=== PATIENT | female | born 1965 | race Caucasian/White ===

== ENCOUNTER → 2017-03-21 | Day surgery (SDC) | payer OTHER ==
[2017-03-21] VITALS (12 sets, daily range): BP systolic 126–153; BP diastolic 68–89; PULSE 68–99; RESP 10–16; O2SAT 97–100
[~2017-03-21] VITALS: Ht 167.6 cm; Wt 90.3 kg
[~2017-03-21] MED LIST: ASPI-973 PO; CeFAZolin Inj 2 GM in IV Premix 1 EACH IV ONE; Dexamethasone 4 mg/mL Inj IVPUSH PRN; Dexamethasone 4 mg/mL Inj ONE; EPHEDrine Sulfate 50 mg/mL Inj IVPUSH PRN; HYDR-4003 PO; HYDROcodone-APAP 5-325 mg Tablet PO PRN; IBUP-1827 PO; Ketorolac 15 mg/mL Inj IVPUSH ONE; Labetalol 5 mg/mL 20 mL Inj IV PRN; Lactated Ringer's 1,000 ML IV ONE; Lactated Ringer's 1,000 ML IV SCH; Lactated Ringer's 500 ML IV PRN; Ondansetron 2 mg/mL 2 mL Inj IVPUSH PRN; Ondansetron 2 mg/mL 2 mL Inj ONE; Phenylephrine 10,000 mCg/mL Inj IVPUSH PRN; Propofol 10,000 mCg/mL 20 mL Inj ONE; Ropivacaine-PF 0.5% 30 mL Inj INFILTRATE ONE; fentaNYL-PF 50 mCg/mL 2 mL Inj ONE
--- NOTE | 2017-03-21 08:25 | PCM.HPANE ---
Patient Data Date of Service: Mar 21, 2017 Surgeon Admitting Provider: Attending Provider:Rosales Ma MD Primary Care Physician:Ghazal Sharp DO Other Provider:Andrae Denney Anesthesia Reason for Visit Left Meniscal Tear Ht/WT & BMI Height (Feet): 5 Height (Inches): 6 Weight (Kilograms): 92. Body Mass Index 32.00 Allergies Coded Allergies: codeine (Verified Allergy, Severe, Itching, 03/19/17) Past Anesthesia History Anesthesia History: Denies:: Abnormal Airway, Anesthesia Reactions, Difficult Intubation, Fam Anesthesia Reaction, Fam Malignant Hypertherm, Malignant Hyperthermia Diabetes History Hx Diabetes?: No MRSA MRSA: No Medications Reported Medications Aspirin 81 Mg [id number] Mg PO DAILY Ref 0 03/19/17 Ibuprofen 600 Mg [id number] Mg PO TID PRN For Pain Ref 0 03/19/17 Discontinued Reported Medications Hydrocodone-Acetaminophen 5-325 mg 1 Each Tablet0.5 Tablet PO HS PRN For Pain Ref 0 03/19/17 History History of ENT Problems?: No HEENT History: Denies:: Abnormal Airway Cataracts Difficult Intubation Dysphagia Glaucoma Hearing Problem Sinus Problem TMJ Denture Type: None Teeth Condition: Within Normal Limits Hx of Heart Problems?: No Cardiovascular History: Denies:: AICD Abdominal Aortic Aneurism Atrial Fibrillation Cardiac Surgery Chest Pain Congestive Heart Failure Coronary Artery Disease Edema Heart Murmur Hypertension Irregular Heartbeat Pacemaker Peripheral Vascular Rheumatic Fever Thrombophlebitis Valvular Heart Disease Hx of Respiratory Problem?: Yes Respiratory History: Positive for:: Pneumonia (Last 2013 & 2014) Denies:: Tuberculosis Use of C-PAP Machine Use of Inhalers / NEBS Hx Neurologic Problems?: No Neurological History: Denies:: Alzheimer's Disease CVA Dementia Dizziness Headaches Multiple Sclerosis Parkinson's Disease Seizures TIA Hx of GI Problems?: No Hx of Problems?: No Genitourinary History: Denies:: Urinary Tract Infection Female Hx: Denies:: Currently Problems with Breasts? Skin History: Denies:: History Skin Disorders? Pressure Ulcers Hx Musculoskeletal Problems?: Yes Musculoskeletal History: Positive for:: Back Injury (low back pain disc desinagrating) Musculoskeletal Trauma (lt. Knee ) Denies:: Degenerative Joint Fibromyalgia Joint Replacement Myasthenia Gravis Osteoarthritis Rheumatoid Arthritis Hx of Psycho/Social Problems?: No Hx Surgeries?: Yes (vericose vein, Inguinal hernia) Other History: Positive for:: Hospitalization (vericose vein, Inguinal hernia , Fx arm) Denies:: Cancer Thyroid Disease History Blood Transfusions: Positive for:: Accept Blood Products? Denies:: Blood Transfusions Hx Diabetes: No Hx Alcohol Use: YesAlcoholic Drinks Per Day: weekends one to two beersHx Substance Use: Yes (Thermal lotion) Stop/Bang Treated for Sleep Apnea?: No Do You Have a CPAP Machine?: No S-Snoring: Do You Snore Loudly: No T-Tired: feel tired, fatigued: Yes O-Obsered: Observed not breath: No P-Blood Pressure: treated: No B- Body Mass Index > 35 kg/m2: No A- Age over 50: Yes N- Neck Large Circumference: No G- Gender Male: No NISHA Total Score: 2 NISHA Risk Assessment: Low Risk, <3 Yes Risk Assessment Category Category 1A: Patient has history of documented sleep apnea, and HAS NOT received any narcotic, sedative or anesthesia administration during this stay. Category 1B: Patient has history of documented sleep apnea, and HAS received any narcotic , sedative or anesthesia administration during this stay Category 2: Patient has SUSPECTED Obstructive Sleep Apnea, and HAS received any narcotic , sedative or anesthesia administration during this stay. Category 3: Patient has SUSPECTED Obstructive Sleep Apnea and HAS NOT received narcotic, sedative or anesthesia administration during this stay. Category 4: Outpatient in Procedural Areas with known sleep apnea or who screen positive for High Risk via the STOP/BANG questionnaire. Exam Exam General Appearance: Alert, Oriented X3, Cooperative, No Acute Distress HEENT/AIRWAY: MP 1 Lungs: Clear to Auscultation Heart: Exam Unremarkable, Regular Rate/Rhythm Plan Impression Patient chart reviewed, patient interviewed and anesthestic plan with risks, benefits, and alternatives discussed, and informed consent obtained. NPO per Anesth. Guidelines: Yes ASA Physical Status: ASA2 Mod Systemic Disease Anesthetic Plan: GA Bene/Risks/Altern/Consents: Yes HP Complete Prior to Induction: Yes Edmundo Correa MD Mar 21, 2017 08:25
--- NOTE | 2017-03-21 11:56 | PCM.ORTHOP ---
Orthopedic Operative Report Date of Service: Mar 21, 2017 Pre Operative Diagnosis Left knee medial meniscus tear Post Operative Diagnosis Left knee medial meniscus tear, chondromalacia Procedure Left knee arthroscopy, partial medial meniscectomy, chondroplasty, partial synovectomy Surgeon Surgeon: Rosales Ma MD Assistants: Christophe Davies Indication for Procedure Left knee medial meniscus tear Findings Per dictation Details of Procedure INDICATIONS: Janie Trimble is a 51-year-old female who has had a history of left knee pain. The patient has failed conservative management. X-rays show the tibiofemoral joints to be preserved with mild DJD. MRI was obtained which reveals medial meniscus tear. The patient has had persistent symptoms and is now brought to the operating room for arthroscopy. The risks, benefits, and alternatives of surgery were discussed with the patient. The risks included but were not limited to infection, bleeding, damage to vessels and nerves, loss of motion, continued pain, re-tear of the meniscus, deep venous thrombosis, and complications due to anesthesia including nerve injury, myocardial infarction, stroke, , etc. The patient stated understanding of the nature of the surgical procedure and gave written and verbal consent to proceed. PROCEDURE: The patient was brought to the operating room and placed supine on the operating room table. After the administration of general anesthesia the patient was placed in the supine position. Examination of the knee revealed no evident instability with a trace effusion. All prominences were padded with appropriately and neurovascular structures protected. The left knee was confirmed to be the appropriate site following surgical time out. The left lower extremity was examined under anesthesia. Range of motion was 0-135 degrees. There was no varus or valgus or anterior or posterior instability. The left lower extremity was then prepped and draped in the usual fashion. Sterile prep and drape was then undertaken of the knee. The knee joint was injected with 20 ccs of 1% Lidocaine, along with 3 ccs of 1 % lidocaine in the medial and lateral portal sites respectively. A standard anterolateral parapatellar stab wound was created. The knee joint was entered with a blunt- tipped obturator, followed by the 30-degree video arthroscope. An anteromedial portal was established under arthroscopic control. A routine arthroscopic survey was performed. The patellofemoral joint showed grade 2/3 chondromalacia which was debrided down to stable tissue with a shaver. The medial joint space was then entered. The articular surfaces showed grade 1/ 2 chondromalacia. A [degenerative posterior horn medial meniscal tear was noted with a small flap located next to the root. The shaver and the cutting instruments were inserted, and a debridement of the meniscus back to healthy tissue was then undertaken. The root was intact and the meniscus was debrided and resected back to stable base. The ACL and PCL were noted to be intact. The lateral joint space was then entered. The articular surfaces were intact with grade 2 chondromalacia. There was no tear to the lateral meniscus It was stable to probing. Moderate synovitis was noted anteriorly in the medial and lateral compartment and debrided with a shaver. The knee was irrigated with an additional 2 liters of lactated Ringer's solution. Excess fluid was drained. The portals were closed with 3-0 nylon as well as xeroform. The knee was injected with 20 mL of 0.5% ropivacaine. A dry sterile dressing was applied, followed by an DAISY hose, soft roll, and TIMBO bandage. The patient was awakened in the operating room and transported to the recovery room in satisfactory condition. The patient appeared to tolerate the procedure well. At the completion of surgery the patient had soft compartments , palpable pulses, and brisk capillary refill. There were no complications noted. Please keep dressing clean dry and intact. Do not remove dressing until follow- up in clinic. If the dressing become soaked, you may remove the outer gauze and placed Band-Aids on the wounds. You may weight-bear as tolerated and maintain motion of your knee by bending it daily. You will follow up in clinic in 10-14 days for suture removal, and placement of new Steri-Strips. You will follow-up with me in clinic, and we will start physical therapy if needed. You will follow-up with me at 6 weeks postop and 12 weeks postop and will be released after that if improved. Please keep the affected extremity elevated when possible. Please take aspirin as prescribed.You may use ice and/ or heat as needed for comfort. (preferably ice during the first 48-72 hours) Please feel free to call with any further questions, comments, and/or concerns. Grafts, Implants: None Complications There were no periprocedural complications identified. Condition Stable Anesthetic Administered: GA Catheters: None Output, Estimated Blood Loss: 5 Blood Admin during surgery: No Surgical Cast or Splint: Other Surgical Specimen Removed: No Specimen sent to Pathology: No copies to: Rosales Ma MD, Christopher L MD Mar 21, 2017 11:56
[2017-03-21] MEDS: fentaNYL-PF 50 mCg/mL 2 mL Inj IVPUSH PRN ×2 (12:25→12:37)
[2017-03-21] MEDS: HYDROmorphone 1 mg/mL Inj IVPUSH PRN ×3 (12:25→12:46)
--- NOTE | 2017-03-21 13:26 | PCM.ANEP1 ---
Post Anesthesia PACU Phase 1 Assessment Vital Signs Vital Signs Date Time Temp Pulse Resp B/P Pulse Ox O2 Delivery O2 Flow Rate FiO2 03/21/17 12:55 36.0 68 10 128/78 99 Nasal Cannula 2 03/21/17 12:45 79 10 141/71 97 Room Air 03/21/17 12:35 78 11 141/80 98 Room Air 03/21/17 12:30 86 16 139/83 99 Room Air 03/21/17 12:25 36.1 83 13 153/89 99 Room Air 03/21/17 12:15 83 14 137/76 100 Nasal Cannula 2 03/21/17 12:10 90 11 139/74 100 Nasal Cannula 2 03/21/17 12:04 93 12 146/87 100 Nasal Cannula 2 03/21/17 11:59 36.2 99 12 149/85 100 Nasal Cannula 2 03/21/17 09:21 36.1 78 16 147/71 100 Room Air Anesthetic Administered: GA Level of Alertness: Awake, talking ROMERO's with Equal Strength: Yes Pain: No Nausea or Vomiting: No CV Function & Hydration Stable: No Airway Device: None Oxygen Delivery: Room Air Lungs: Clear to Auscultation Dermatome Level: Full Sensation PACU Phase 2 Assessment Complications: No Follow up Care: N/A Patient Instructions Provided: N/A Edmundo Correa MD Mar 21, 2017 13:25
== END | disposition home or self-care (01) ==
LOC: SAS 08:18
PROVIDERS: ATTEND Orthopaedic Surgery
DX: S83.232A Complex tear of medial meniscus, current injury, left knee, initial encounter (principal); M22.42 Chondromalacia patellae, left knee; W10.8XXA Fall (on) (from) other stairs and steps, initial encounter; Y93.9 Activity, unspecified; Y92.9 Unspecified place or not applicable; Y99.8 Other external cause status
CPT/HCPCS: 29881; J0690; J1100; J1170; J1885; J2250; J2405; J2704; J2795; J3010; J7120